=== PATIENT | female | born 1965 | race Hispanic/Latino ===

== ENCOUNTER → 2021-02-12 | Outpatient (CLI) | payer OTHER | END | disposition home or self-care (01) | LOC: NPLAB 11:19 | PROVIDERS: ATTEND Nurse Practitioner Adult Health | DX: E03.9 Hypothyroidism, unspecified (principal); R42 Dizziness and giddiness; L65.9 Nonscarring hair loss, unspecified | CPT/HCPCS: 36415; 80178; 84436; 84479 ==

== ENCOUNTER → 2021-04-02 | Outpatient (CLI) | payer OTHER ==
--- NOTE | 2021-04-02 17:45 | DIREP ---
PROCEDURE:Digital Screening Mammogram TECHNIQUE:MLO, CC, and XCCL digital images of each breast are provided. Computer Assisted Detection (CAD) was utilized. COMPARISON:None available. Prior mammograms, 2017, in [place]. INDICATIONS:SCREENING BREAST COMPOSITION:Heterogeneously dense,which may obscure small masses. FINDINGS:In the right breast, there is a group of microcalcifications at the approximately 9 o'clock posterior depth position. In the left breast, there are no grouped microcalcifications, masses, or architectural distortions to suggest malignancy. IMPRESSION:There is a group of microcalcifications in the right breast. RECOMMENDATIONS:Additional imaging evaluation of the right breast is needed. Additional imaging should include: 1. Non magnified 90 true lateral view. 2. Spot magnification compression 90 true lateral view. 3. Spot magnification compression CC view. Our facility will contact the patient for follow-up imaging. OVERALL FINAL ASSESSMENT:BI-RADS 0 - Incomplete: Need Additional Imaging Evaluation Note: This facility participates in a mammography screening patient reminder system. Dictated by: Nash Longo M.D. on 04/02/2021 at 05:38 PM
== END | disposition home or self-care (01) ==
LOC: EDUNIT# 02-26 11:30 → RAD 15:42
PROVIDERS: ATTEND Nurse Practitioner Adult Health
DX: Z12.31 Encounter for screening mammogram for malignant neoplasm of breast (principal)
CPT/HCPCS: 77067

== ENCOUNTER → 2021-05-20 | Outpatient (CLI) | payer OTHER ==
--- NOTE | 2021-05-20 11:10 | DIREP ---
PROCEDURE:MAMMO UNILATERAL-RT COMPARISON:[facility], , MAMMO BILATERAL SCREENING, 04/02/2021, 03:59 PM. INDICATIONS:R92.2 INCONCLUSIVE MAMMOGRAM BREAST COMPOSITION:Heterogeneously dense, which may obscure small masses. DIAGNOSTIC MAMMOGRAM: Right views: mediolateral and spot compression magnification (MLO, CC, and ML) Computer Assisted Detection (CAD) was utilized. In the middle 1/3 at the 9-10 o'clock position there is a small grouping of amorphous microcalcifications that extends over region of 5.8 mm. COUNSELING/COORDINATION OF CARE: Findings and recommendations were discussed with the patient. She is aware of her breast density. Findings and recommendation for stereotactic biopsy were discussed with the patient and her . Her was able to translate. All questions were answered. This report was called by telephone at 11:06 am on May 20, 2021 to Kamala at Mrs. Evelyn RalphSharon Manjula's office. Their office will arrange for the biopsy procedure at [facility] and notify the patient. IMPRESSION:Suspicious microcalcifications in the right breast that require further evaluation with stereotactic core needle biopsy RECOMMENDATIONS:Right breast stereotactic core needle biopsy OVERALL FINAL ASSESSMENT:BI-RADS 4 - Suspicious for Malignancy -Biopsy should be considered. . Dictated by: Vahe Duarte MD on 05/20/2021 at 10:50 AM
== END | disposition home or self-care (01) ==
LOC: RAD 09:52
PROVIDERS: ATTEND Nurse Practitioner Adult Health
DX: R92.2 Inconclusive mammogram (principal)

== ENCOUNTER 2022-02-13 06:58 | Emergency (ER) | payer OTHER ==
[~2022-02-13] VITALS: Ht 170.2 cm; Wt 66.3 kg
--- NOTE | 2022-02-13 07:05 | NUR ---
ARRIVAL PRESENTED TO ED RM#6 AMBULATORY WITH SPOUSE. C/O SORE THROAT X2-3 DAYS, RATES PAIN 05/29. REPORTS SINUS DRAINAGE. VS OBTAINED. DR. ROWE NOTIFIED OF PATIENT ARRIVAL.
[2022-02-13 07:21] VITALS: BP 149/98
[2022-02-13 07:29] VITALS: BP 127/96
--- NOTE | 2022-02-13 07:34 | ER.PDOC ---
General Chief Complaint: Sore Throat Stated Complaint: SORE THROAT Time seen by MD: 07:27 Source: patient Exam Limitations: no limitations History of Present Illness Initial Comments 57 y/o female comes here with sore throat and sinus congestion since yesterday no fever/chills no SOB No sick contacts Took Advil with no benefit No cough No Headache No ear pain Allergies: Coded Allergies: No Known Allergies (Unverified , 02/13/22) Past Medical History Medical History: no pertinent history Surgical History: LMP (females 10-50): Menopause Family History Significant Family History: no pertinent family hx Social History Smoking: non-smoker Alcohol Use: none Drug Use: none Reviewed Nursing Reviewed: Vital Signs, Abn. Noted, Nursing Assessment Constitutional: denies no symptoms reported, denies see HPI, denies chills, denies diaphoresis, denies fever, denies malaise, denies weakness, denies other Eyes: denies no symptoms reported, denies see HPI, denies blindness, denies blurred vision, denies drainage, denies decreased acuity, denies foreign body sensation, denies inflammation, denies pain, denies photophobia, denies previous injury, denies shadows, denies tunnel vision, denies vision change, denies contact lenses, denies glasses, denies other Ears: denies no symptoms reported, denies see HPI, denies dizziness, denies pain, denies tinnitus, denies bloody discharge, denies clear discharge, denies purulent discharge, denies serosanguinous discharge, denies previous injury, denies other Nose: denies no symptoms reported, denies see HPI, denies clots; congestion; denies epistaxis, denies pain, denies bloody discharge, denies clear discharge, denies purulent discharge, denies serosanguinous discharge, denies previous injury, denies other Mouth: denies no symptoms reported, denies see HPI, denies clots, denies loose teeth, denies pain, denies swelling, denies bloody discharge, denies clear discharge, denies purulent discharge, denies serosanguinous discharge, denies pr evious injury, denies other Throat: denies no symptoms reported, denies see HPI; pain; denies swelling, denies discharge, denies neck stiffness, denies aphonia, denies hoarse, denies muffled, denies painful swallowing, denies difficulty with fluids, denies previous injury, denies other Respiratory: denies no symptoms reported, denies see HPI, denies cough, denies orthopnea, denies shortness of breath, denies stridor, denies wheezing, denies other Cardiovascular: denies no symptoms reported, denies see HPI, denies chest pain, denies edema, denies palpitations, denies syncope, denies other Gastrointestinal: denies no symptoms reported, denies see HPI, denies abdominal pain, denies constipation, denies diarrhea, denies nausea, denies vomiting, denies other Musculoskeletal: denies no symptoms reported, denies see HPI, denies back pain, denies gout, denies joint pain, denies joint swelling, denies muscle pain, denies muscle stiffness, denies neck pain, denies other Skin: denies no symptoms reported, denies see HPI, denies change in color, denies change in hair/nails, denies dryness, denies lesions, denies lumps, de nies rash, denies other Neurological: denies no symptoms reported, denies see HPI, denies anxiety, denies depressed, denies emotional problems, denies headache, denies numbness, denies paresthesia, denies pre-existing deficit, denies seizure, denies tingling, denies tremors, denies weakness, denies other Hematologic/Lymphatic: denies no symptoms reported, denies see HPI, denies anemia, denies blood clots, denies easy bleeding, denies easy bruising, denies swollen glands, denies other Immunological/Allergic: denies no symptoms reported, denies see HPI, denies food allergy, denies grass allergy, denies mold allergy, denies pollen allergy, denies HIV/AIDS, denies transplant All Other Systems: Reviewed and Negative Physical Exam General Appearance: alert, no distress Head/Neck: head nml inspection, neck nml inspection Eyes: eyes nml inspection, PERRL Mouth: lips, gums nml, no drooling, no thrush, membranes nml Throat: pharynx nml, voice nml Ears/Nose: nml inspection Respiratory: no resp. distress, lungs clear CVS: reg. rate & rhythm, heart sounds nml Abdomen: non-tender Extremities: non-tender Skin Exam: Normal Color NEURO/PSYCH: oriented X3, mood/effect nml Results/Orders Results/Orders Orders - KADEN ROWE MD Covid Resp Longo (02/13/22 07:19) Strep Screen (02/13/22 07:19) Vital Signs Date Time Temp Pulse Resp B/P (MAP) Pulse Ox O2 Delivery O2 Flow Rate FiO2 02/13/22 07:21 100.0 120 17 100 Progress Progress no pharyngeal exudates no fever started yesterday most likely Viral d/c home after prednisone and naproxen f/u with PCP ER DEPART Departure Time of Disposition: 07:36 Disposition: 01 HOME / SELF CARE / HOMELESS Impression: Primary Impression: Viral pharyngitis Condition: Stable Patient Instructions: Sore Throat, [id number] Referrals: ALBA SANCHEZ SUB ACUTE CARE NURSE (PCP) PRIMARY CARE PROVIDER Duration or Time Spent with Pa: 10 min KADEN ROWE MD Feb 13, 2022 07:34
--- NOTE | 2022-02-13 07:50 | NUR ---
DISCHARGE PER EDP, OKAY TO DISCHARGE AND CALL PATIENT/SPOUSE RESULTS OF RESP PANEL. PATIENT/SPOUSE IN AGREEMENT.
--- NOTE | 2022-02-13 08:33 | NUR ---
LAB RESP PANEL ALL NEGATIVE, REPORTED TO DR. ROWE AND RESULTS CALLED TO PATIENT/SPOUSE.
== END 2022-02-13 07:56 | disposition home or self-care (01) ==
LOC: ER 06:58
DX: J02.8 Acute pharyngitis due to other specified organisms (principal); B97.89 Other viral agents as the cause of diseases classified elsewhere
CPT/HCPCS: 87070; 87633; 87880; 99283

== ENCOUNTER → 2024-09-18 | Outpatient (CLI) | payer OTHER | END | disposition home or self-care (01) | LOC: RAD 09:41 | PROVIDERS: ATTEND Orthopaedic Surgery | DX: S42.92XA Fracture of left shoulder girdle, part unspecified, initial encounter for closed fracture (principal); M41.84 Other forms of scoliosis, thoracic region; M79.89 Other specified soft tissue disorders; X58.XXXA Exposure to other specified factors, initial encounter; Y93.89 Activity, other specified; Y92.89 Other specified places as the place of occurrence of the external cause; Y99.8 Other external cause status | CPT/HCPCS: 73030-LT; 73610-RT ==

== ENCOUNTER → 2024-10-09 | Outpatient (CLI) | payer OTHER | END | disposition home or self-care (01) | LOC: RAD 07:42 | PROVIDERS: ATTEND Orthopaedic Surgery | DX: S42.215D Unspecified nondisplaced fracture of surgical neck of left humerus, subsequent encounter for fracture with routine healing (principal); M41.84 Other forms of scoliosis, thoracic region; X58.XXXD Exposure to other specified factors, subsequent encounter | CPT/HCPCS: 73030-LT ==

== ENCOUNTER → 2024-10-30 | Outpatient (CLI) | payer OTHER | END | disposition home or self-care (01) | LOC: RAD 08:28 | PROVIDERS: ATTEND Orthopaedic Surgery | DX: S42.212D Unspecified displaced fracture of surgical neck of left humerus, subsequent encounter for fracture with routine healing (principal); X58.XXXD Exposure to other specified factors, subsequent encounter | CPT/HCPCS: 73030-LT ==